=== PATIENT | female | born 1970 | race Caucasian/White ===

== ENCOUNTER 2017-10-04 12:24 | Inpatient (IN) ==
--- NOTE | 2017-10-04 12:52 | ED ---
HPI General Chief Complaint: Psychiatric Symptoms Stated Complaint: Anxiety Time Seen by Provider: 10/04/17 12:39 History of Present Illness HPI Narrative: Patient comes to the emergency department requesting to "get my head right". Patient reports visual and auditory hallucinations. Patient states that she is uncertain what the voices were telling her. Patient denies any suicidal homicidal ideations. Patient reports that she was on the highway all night visualizing a ship. Patient states she has been seeing visions of "Armageddon". Patient denies anything making symptoms better or worse. Denies any drug use or . Denies any chest pain, shortness breath, abdominal pain, or fevers. Denies any modifying factors. Related Data Allergies Allergy/AdvReac Type Severity Reaction Status Date / Time No Known Allergies Allergy Unverified 10/04/17 12:30 Review of Systems Except as stated in HPI: all other systems reviewed are negative PMFSH Social History Social History Second Hand Smoke Exposure: Yes Smoking Status: Current every day smoker Tobacco Type: Cigarettes How Often Do You Have a Drink Containing Alcohol: 4 or more times a week Recent Travel in [facility] within the Last 8 Weeks: No Recent Out of Country Travel within the Last 8 Weeks: No Exam Narrative Exam Narrative: GENERAL: Well-developed, well nourished, in no acute distress, and non-ill appearing. SKIN: Focused skin assessment warm and dry. HEAD: Atraumatic. Normocephalic. EYES: Pupils equal and round. EOMI. No scleral icterus. No injection or drainage. ENT: No nasal bleeding or discharge. Mucous membranes pink and moist. NECK: Trachea midline. No JVD. Supple. No nuclear rigidity. CARDIOVASCULAR: Regular rate and rhythm. No murmur appreciated. RESPIRATORY: No accessory muscle use. No respiratory distress. Clear to auscultation. Breath sounds equal bilaterally. GASTROINTESTINAL: Abdomen soft, non-tender, nondistended, and no guarding. Hepatic and splenic margins not palpable. No pulsatile mass. MUSCULOSKELETAL: No obvious deformities. No clubbing. No cyanosis. No edema. Full range of motion. NEUROLOGICAL: Awake and alert. No obvious cranial nerve deficits. Motor grossly within normal limits. Normal speech. PSYCHIATRIC: Insight and judgment abnormal. Course Initial Documented Vital Signs Temperature 96.5 F L 10/04/17 12:30 Pulse Rate 96 H 10/04/17 12:30 Blood Pressure 165/97 H 10/04/17 12:30 Pulse Oximetry 99 10/04/17 12:30 Last Documented Vital Signs Temperature 96.5 F L 10/04/17 12:30 Pulse Rate 96 H 10/04/17 12:30 Blood Pressure 165/97 H 10/04/17 12:30 Pulse Oximetry 99 10/04/17 12:30 Medical Decision Making MDM Narrative Medical decision making narrative: Patient was seen and examined. Labs and CT were obtained and reviewed. Patient medically cleared for further treatment and evaluation by psych. Final disposition per psych. Differential Diagnosis Differential Diagnosis: Suicidal, homicidal, schizophrenia, acute psychosis, substance abuse, UTI, intracranial hemorrhage, intracranial mass Lab Data Lab results reviewed: Yes I reviewed the patient's lab results. Result diagrams: 10/04/17 13:05 10/04/17 13:05 Lab Results 10/04/17 10/04/17 10/04/17 Range/Units 13:00 13:00 13:05 WBC 14.2 H (4.0-11.0) th/mm3 RBC 4.31 (4.00-5.30) mil/mm3 Hgb 10.3 L (11.6-15.3) gm/dL Hct 31.9 L (35.0-46.0) % MCV 74.0 L (80.0-100.0) fL MCH 23.8 L (27.0-34.0) pg MCHC 32.1 (32.0-36.0) % RDW 18.3 H (11.6-17.2) % Plt Count 396 (150-450) th/mm3 MPV 8.2 (7.0-11.0) fL Neut % (Auto) 76.6 H (16.0-70.0) % Lymph % (Auto) 15.5 (9.0-44.0) % [place] % (Auto) 6.9 (0.0-8.0) % Eos % (Auto) 0.6 (0.0-4.0) % Baso % (Auto) 0.4 (0.0-2.0) % Neut # (Auto) 10.9 H (1.8-7.7) th/mm3 Lymph # (Auto) 2.2 (1.0-4.8) th/mm3 [place] # (Auto) 1.0 H (0.0-0.9) th/mm3 Eos # (Auto) 0.1 (0.0-0.4) th/mm3 Baso # (Auto) 0.1 (0.0-0.2) th/mm3 WBC Differential . Differential Comment Auto diff final Sodium (136-145) meq/L Potassium (3.5-5.1) meq/L Chloride (98-107) meq/L Carbon Dioxide (21.0-32.0) meq/L Anion Gap (5-15) meq/L BUN (7-18) mg/dL Creatinine (0.50-1.00) mg/dL Estimated GFR (>89) mL/min Random Glucose (74-106) mg/dL Calcium (8.5-10.1) mg/dL Total Bilirubin (0.2-1.0) mg/dL AST (15-37) U/L ALT (10-53) U/L Alkaline Phosphatase (45-117) U/L Total Protein (6.4-8.2) g/dL Albumin (3.4-5.0) g/dL TSH (0.358-3.740) uIU/mL Urine Color Yellow (Yellw/Straw) Urine Clarity Hazy H (Clear) Urine pH 5.0 (5.0-8.5) Ur Specific [place] 1.021 (1.002-1.035) Urine Protein Negative (Neg-Trace) mg/dL Urine Glucose (UA) Negative (Negative) mg/dL Urine Ketones Negative (Negative) mg/dL Urine Occult Blood Moderate H (Negative) Urine Nitrate Negative (Negative) Urine Bilirubin Negative (Negative) Urine Urobilinogen 2.0 H (Less than 2) mg/dL Ur Leukocyte Esterase Negative (Negative) Urine RBC 4 H (0-3) /hpf Urine WBC 1 (0-5) /hpf Ur Squamous Epith Cells 2 (0-5) /hpf Urine Bacteria Occasional H (None) /hpf Urine Mucus Few H (Occasional) /lpf Micro UA Comment Culture not ind Salicylates (2.8-20.0) mg/dL Urine Opiates Screen Neg (Neg) Acetaminophen (10.0-30.0) mcg/mL Ur Barbiturates Screen Neg (Neg) Ur Amphetamines Screen Neg (Neg) U Benzodiazepines Scrn Neg (Neg) Urine Cocaine Screen Neg (Neg) U Cannabinoids Screen Neg (Neg) Serum Alcohol (0-5) mg/dL 10/04/17 10/04/17 Range/Units 13:05 13:05 WBC (4.0-11.0) th/mm3 RBC (4.00-5.30) mil/mm3 Hgb (11.6-15.3) gm/dL Hct (35.0-46.0) % MCV (80.0-100.0) fL MCH (27.0-34.0) pg MCHC (32.0-36.0) % RDW (11.6-17.2) % Plt Count (150-450) th/mm3 MPV (7.0-11.0) fL Neut % (Auto) (16.0-70.0) % Lymph % (Auto) (9.0-44.0) % [place] % (Auto) (0.0-8.0) % Eos % (Auto) (0.0-4.0) % Baso % (Auto) (0.0-2.0) % Neut # (Auto) (1.8-7.7) th/mm3 Lymph # (Auto) (1.0-4.8) th/mm3 [place] # (Auto) (0.0-0.9) th/mm3 Eos # (Auto) (0.0-0.4) th/mm3 Baso # (Auto) (0.0-0.2) th/mm3 WBC Differential Differential Comment Sodium 140 (136-145) meq/L Potassium 3.4 L (3.5-5.1) meq/L Chloride 105 (98-107) meq/L Carbon Dioxide 27.1 (21.0-32.0) meq/L Anion Gap 8 (5-15) meq/L BUN 9 (7-18) mg/dL Creatinine 0.78 (0.50-1.00) mg/dL Estimated GFR 80 L (>89) mL/min Random Glucose 95 (74-106) mg/dL Calcium 8.2 L (8.5-10.1) mg/dL Total Bilirubin 0.3 (0.2-1.0) mg/dL AST 12 L (15-37) U/L ALT 17 (10-53) U/L Alkaline Phosphatase 100 (45-117) U/L Total Protein 6.9 (6.4-8.2) g/dL Albumin 3.5 (3.4-5.0) g/dL TSH 2.520 (0.358-3.740) uIU/mL Urine Color (Yellw/Straw) Urine Clarity (Clear) Urine pH (5.0-8.5) Ur Specific [place] (1.002-1.035) Urine Protein (Neg-Trace) mg/dL Urine Glucose (UA) (Negative) mg/dL Urine Ketones (Negative) mg/dL Urine Occult Blood (Negative) Urine Nitrate (Negative) Urine Bilirubin (Negative) Urine Urobilinogen (Less than 2) mg/dL Ur Leukocyte Esterase (Negative) Urine RBC (0-3) /hpf Urine WBC (0-5) /hpf Ur Squamous Epith Cells (0-5) /hpf Urine Bacteria (None) /hpf Urine Mucus (Occasional) /lpf Micro UA Comment Salicylates Less than 1.7 L (2.8-20.0) mg/dL Urine Opiates Screen (Neg) Acetaminophen Less than 2.0 L (10.0-30.0) mcg/mL Ur Barbiturates Screen (Neg) Ur Amphetamines Screen (Neg) U Benzodiazepines Scrn (Neg) Urine Cocaine Screen (Neg) U Cannabinoids Screen (Neg) Serum Alcohol Less than 3 (0-5) mg/dL Imaging Data Radiologist's impression: ITS Impressions Head CT 10/04/17 13:51 CONCLUSION: 1. No acute intracranial abnormalities. Discharge Plan Discharge Disposition Patient Disposition: 30 Still Patient Discharge Details Discharge Problem: Medical clearance for psychiatric admission Physicians Team ED Provider: Amrit Hoff ED Midlevel Provider: Cong Shaffer Primary Care Provider: Primary Care Milagros Hernández Status ED Status: Medically Cleared
[2017-10-04 13:19] LABS: Baso # (Auto) 0.1 th/mm3 (0.0-0.2); Baso % (Auto) 0.4 % (0.0-2.0); Eos # (Auto) 0.1 th/mm3 (0.0-0.4); Eos % (Auto) 0.6 % (0.0-4.0); Hematocrit 31.9 % (35.0-46.0); Hemoglobin 10.3 gm/dL (11.6-15.3); Lymph # (Auto) 2.2 th/mm3 (1.0-4.8); Lymph % (Auto) 15.5 % (9.0-44.0); Mean Corpuscular HGB Conc 32.1 % (32.0-36.0); Mean Corpuscular Hemoglobin 23.8 pg (27.0-34.0); Mean Platelet Volume 8.2 fL (7.0-11.0); Mono % (Auto) 6.9 % (0.0-8.0); Neut # (Auto) 10.9 th/mm3 (1.8-7.7); Neut % (Auto) 76.6 % (16.0-70.0); Platelet Count 396 th/mm3 (150-450); Red Blood Count 4.31 mil/mm3 (4.00-5.30); Red Cell Distribution Width 18.3 % (11.6-17.2); White Blood Count 14.2 th/mm3 (4.0-11.0)
[2017-10-04 13:42] LABS: Alanine Aminotransferase 17 U/L (10-53); Albumin 3.5 g/dL (3.4-5.0); Anion Gap 8 meq/L (5-15); Aspartate Aminotransferase 12 U/L (15-37); Blood Urea Nitrogen 9 mg/dL (7-18); Calcium 8.2 mg/dL (8.5-10.1); Carbon Dioxide 27.1 meq/L (21.0-32.0); Chloride 105 meq/L (98-107); Glomerular Filtration Rate 80 mL/min (>89); Glucose,Random 95 mg/dL (74-106); Potassium 3.4 meq/L (3.5-5.1); Sodium 140 meq/L (136-145)
[2017-10-04 13:51] LABS: Alkaline Phosphatase 100 U/L (45-117); Total Protein 6.9 g/dL (6.4-8.2)
[2017-10-04 14:34] LABS: Bacteria,Urine Occasional /hpf; Bilirubin,Urine Negative (Negative); Clarity,Urine Hazy (Clear); Color,Urine Yellow (Yellw/Straw); Glucose,Urine (UA) Negative (Negative); Leukocyte Esterase,Urine Negative (Negative); Mucus,Urine Few /lpf (Occasional); Nitrite,Urine Negative (Negative); Specific Gravity,Urine 1.021 (1.002-1.035); Squamous Epithelial Cell,Urine 2 /hpf (0-5)
[2017-10-04 14:45] LABS: Amphetamine Screen,Urine Neg (Neg); Barbiturate Screen,Urine Neg (Neg); Cannabinoid Screen,Urine Neg (Neg); Cocaine Screen,Urine Neg (Neg)
[2017-10-04 14:48] LABS: Opiate Screen,Urine Neg (Neg)
--- NOTE | 2017-10-04 17:01 | CT ---
EXAM DATE: 10/04/2017 4:30 PM EDT AGE/SEX: 47 years / Female INDICATIONS: Altered mental status, hallucinations CLINICAL DATA: This is the patient's initial encounter. Patient reports that signs and symptoms have been present for 1 day and indicates a pain score of 0/10. MEDICAL/SURGICAL HISTORY: None. None. RADIATION DOSE: 47.25 CTDI (mGy) COMPARISON: No prior exams available for comparison. TECHNIQUE: CT of the head without contrast. Using automated exposure control and adjustment of the mA and/or kV according to patient size, radiation dose was kept as low as reasonably achievable to ob tain optimal diagnostic quality images. DICOM format image data is available electronically for revi ew and comparison. FINDINGS: Cerebrum: The ventricles are normal for age. No evidence of midline shift, mass lesion, hemorrhage or acute infarction. No extraaxial fluid collections are seen. Posterior Fossa: The cerebellum and brainstem are intact. The 4th ventricle is midline. The cerebe llopontine angle is unremarkable. Extracranial: The visualized portion of the orbits is intact. Skull: The calvaria is intact. No evidence of skull fracture. CONCLUSION: 1. No acute intracranial abnormalities. Electronically signed by: Samson Alvarenga MD 10/04/2017 5:00 PM EDT
--- NOTE | 2017-10-05 15:00 | ED ---
HPI - Psych - General Chief Complaint: Psychiatric Symptoms Stated Complaint: Anxiety Time Seen by Provider: 10/04/17 12:39 - History of Present Illness HPI Narrative: Patient is a 47-year-old single female with 4 children ( 3 boys and 1 girl), who comes to the emergency department stating that she needs to "get my head right." She states that she was originally living in [place] with her mother but left there because her mother has problems with addiction. She then moved to [facility] and was under the care of for her bipolar. She was taking Risperdal and Zoloft but does not recall the doses. She states that she has not been taking her medications because they "messed with my organs." She moved to [place] to start over. 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 She states that she has been on disability in the past. She had a significant other for 6 years but he left her. Her children are currently grown. She discloses that she had a 40 hour period with no sleep. This was followed by a 2 hour nap and then subsequent 35 hours without sleep. She states that she has had this happen in the past when she gets very manic and cannot sleep for days on end. She states that she occasionally will use marijuana and alcohol to get rid of her racing thoughts. Her last marijuana use was in June 2017 and she recently drank 8 beers. She has a high school diploma and did attend [employer]. She is familiar with [place] as she lived here 28 years ago. Patient states that she is allergic to Depakote that it gives her a serious headache when she takes it and prior to the next dose the headache increases. Patient did smoke but she quit in June. Urine drug screen and alcohol are both negative. Chart reviewed and discussed with nurse. Patient is in room J109 of the emergency department. She is alert to self only. She is confused about the date time and place. She is disheveled and her long hair is mangled. She states that she is having visions of "Armageddon." She is preoccupied with past president Obama and thinks that he is trying to kill her. Her thoughts are tangential. She is not logical. She denies any auditory hallucinations. She states that she has visions that people are surrounding her and trying to hurt her. She discusses that she was part of 911 and she led them to [place]. Her motor and gait is normal. Recent and remote memory is impaired. Judgment and insight is poor. She denies any suicidal or homicidal ideation. Based on patient's presentation and moderate risk for decompensation will admit patient for further assessment and treatment. Dx: Bipolar Disorder (Shauna Lynn) - Related Data Home Medications Medication Instructions Recorded Confirmed No Known Home Medications 10/04/17 10/04/17 Allergies Allergy/AdvReac Type Severity Reaction Status Date / Time No Known Allergies Allergy Unverified 10/04/17 12:30 Review of Systems All other systems reviewed negative except as stated in HPI PMFSH - History History Provided By: Patient - Tobacco History Second Hand Smoke Exposure: Yes Tobacco Use In Past 30 Days: Yes Smoking Status: Current every day smoker Tobacco Type: Cigarettes - Alcohol History How Often Do You Have a Drink Containing Alcohol: 4 or more times a week - Travel History Recent Travel in the [facility] Within the Last 8 Weeks: No Recent Travel Out of the Country Within the Last 8 Weeks: No - Immunization History Tetanus Immunization: Unsure Psychiatric History - Psychiatric History Patient has a long history of bipolar and I believe she might also be PTSD although I cannot confirm this. She has been under the treatment of in [facility] for her bipolar. She has been prescribed Risperdal and Zoloft and has been medication noncompliant. (Shauna Lynn) Physical Exam - General Limitations: no limitations General appearance: alert, other (to self, does not know the date, place or who is the president ) - Head Head exam: atraumatic - Eye Eye exam: Present: normal appearance - ENT ENT exam: Present: normal exam - Neck Neck exam: Present: normal inspection - Chest Chest inspection: Present: normal inspection - Respiratory Respiratory exam: Present: normal lung sounds bilaterally Mental Status Examination Appearance: Disheveled Consciousness: Other (very confused) Orientation: Person Motor Activity: Normal gait Speech: Unremarkable Language: Perseveration Fund of Knowledge: Inadequate Attention and Concentration: Easily distracted Memory: Impaired Mood: Sad Affect: Flat Thought Process & Associations: Loose associations, Disorganized, Tangential Thought Content: Racing thoughts Hallucination Type: Visual (seeing "armegeddon" ; thinks past Pres Obama is trying to kill her.) Delusion Type: Paranoid Suicidal Ideation: No Suicidal Plan: No Suicidal Intention: No Homicidal Ideation: No Homicidal Plan: No Homicidal Intention: No Insight: Poor Judgment: Poor Initial Documented Vital Signs Temperature 96.5 F L 10/04/17 12:30 Pulse Rate 96 H 10/04/17 12:30 Blood Pressure 165/97 H 10/04/17 12:30 Pulse Oximetry 99 10/04/17 12:30 Last Documented Vital Signs Temperature 98.2 F 10/05/17 10:40 Pulse Rate 76 10/05/17 10:40 Respiratory Rate 16 10/05/17 10:40 Blood Pressure 113/59 L 10/05/17 10:40 Pulse Oximetry 99 10/05/17 10:40 MDM - Psych - Diagnosis (1) Bipolar 1 disorder with moderate alejandra Status: Acute - Lab Data Result diagrams: 10/04/17 13:05 10/04/17 13:05 - [facility] Narrative Medical decision making narrative: Patient is a 47-year-old female with a long history of bipolar disorder. She presents to the emergency department with racing thoughts and had not slept in 40 hours. She states that this happens to her often and when she loses sleep she becomes extremely manic. She is currently illogical, tangential, and making nonsensical statements. She has not been compliant with her medications. Based on her presentation and moderate risk for decompensation will admit patient for further assessment and treatment. (Shauna Lynn) - Lab Data Lab Results 10/04/17 10/04/17 10/04/17 Range/Units 13:00 13:00 13:05 WBC 14.2 H (4.0-11.0) th/mm3 RBC 4.31 (4.00-5.30) mil/mm3 Hgb 10.3 L (11.6-15.3) gm/dL Hct 31.9 L (35.0-46.0) % MCV 74.0 L (80.0-100.0) fL MCH 23.8 L (27.0-34.0) pg MCHC 32.1 (32.0-36.0) % RDW 18.3 H (11.6-17.2) % Plt Count 396 (150-450) th/mm3 MPV 8.2 (7.0-11.0) fL Neut % (Auto) 76.6 H (16.0-70.0) % Lymph % (Auto) 15.5 (9.0-44.0) % [place] % (Auto) 6.9 (0.0-8.0) % Eos % (Auto) 0.6 (0.0-4.0) % Baso % (Auto) 0.4 (0.0-2.0) % Neut # (Auto) 10.9 H (1.8-7.7) th/mm3 Lymph # (Auto) 2.2 (1.0-4.8) th/mm3 [place] # (Auto) 1.0 H (0.0-0.9) th/mm3 Eos # (Auto) 0.1 (0.0-0.4) th/mm3 Baso # (Auto) 0.1 (0.0-0.2) th/mm3 WBC Differential . Differential Comment Auto diff final Sodium (136-145) meq/L Potassium (3.5-5.1) meq/L Chloride (98-107) meq/L Carbon Dioxide (21.0-32.0) meq/L Anion Gap (5-15) meq/L BUN (7-18) mg/dL Creatinine (0.50-1.00) mg/dL Estimated GFR (>89) mL/min Random Glucose (74-106) mg/dL Calcium (8.5-10.1) mg/dL Total Bilirubin (0.2-1.0) mg/dL AST (15-37) U/L ALT (10-53) U/L Alkaline Phosphatase (45-117) U/L Total Protein (6.4-8.2) g/dL Albumin (3.4-5.0) g/dL TSH (0.358-3.740) uIU/mL Urine Color Yellow (Yellw/Straw) Urine Clarity Hazy H (Clear) Urine pH 5.0 (5.0-8.5) Ur Specific [place] 1.021 (1.002-1.035) Urine Protein Negative (Neg-Trace) mg/dL Urine Glucose (UA) Negative (Negative) mg/dL Urine Ketones Negative (Negative) mg/dL Urine Occult Blood Moderate H (Negative) Urine Nitrate Negative (Negative) Urine Bilirubin Negative (Negative) Urine Urobilinogen 2.0 H (Less than 2) mg/dL Ur Leukocyte Esterase Negative (Negative) Urine RBC 4 H (0-3) /hpf Urine WBC 1 (0-5) /hpf Ur Squamous Epith Cells 2 (0-5) /hpf Urine Bacteria Occasional H (None) /hpf Urine Mucus Few H (Occasional) /lpf Micro UA Comment Culture not ind Salicylates (2.8-20.0) mg/dL Urine Opiates Screen Neg (Neg) Acetaminophen (10.0-30.0) mcg/mL Ur Barbiturates Screen Neg (Neg) Ur Amphetamines Screen Neg (Neg) U Benzodiazepines Scrn Neg (Neg) Urine Cocaine Screen Neg (Neg) U Cannabinoids Screen Neg (Neg) Serum Alcohol (0-5) mg/dL 10/04/17 10/04/17 Range/Units 13:05 13:05 WBC (4.0-11.0) th/mm3 RBC (4.00-5.30) mil/mm3 Hgb (11.6-15.3) gm/dL Hct (35.0-46.0) % MCV (80.0-100.0) fL MCH (27.0-34.0) pg MCHC (32.0-36.0) % RDW (11.6-17.2) % Plt Count (150-450) th/mm3 MPV (7.0-11.0) fL Neut % (Auto) (16.0-70.0) % Lymph % (Auto) (9.0-44.0) % [place] % (Auto) (0.0-8.0) % Eos % (Auto) (0.0-4.0) % Baso % (Auto) (0.0-2.0) % Neut # (Auto) (1.8-7.7) th/mm3 Lymph # (Auto) (1.0-4.8) th/mm3 [place] # (Auto) (0.0-0.9) th/mm3 Eos # (Auto) (0.0-0.4) th/mm3 Baso # (Auto) (0.0-0.2) th/mm3 WBC Differential Differential Comment Sodium 140 (136-145) meq/L Potassium 3.4 L (3.5-5.1) meq/L Chloride 105 (98-107) meq/L Carbon Dioxide 27.1 (21.0-32.0) meq/L Anion Gap 8 (5-15) meq/L BUN 9 (7-18) mg/dL Creatinine 0.78 (0.50-1.00) mg/dL Estimated GFR 80 L (>89) mL/min Random Glucose 95 (74-106) mg/dL Calcium 8.2 L (8.5-10.1) mg/dL Total Bilirubin 0.3 (0.2-1.0) mg/dL AST 12 L (15-37) U/L ALT 17 (10-53) U/L Alkaline Phosphatase 100 (45-117) U/L Total Protein 6.9 (6.4-8.2) g/dL Albumin 3.5 (3.4-5.0) g/dL TSH 2.520 (0.358-3.740) uIU/mL Urine Color (Yellw/Straw) Urine Clarity (Clear) Urine pH (5.0-8.5) Ur Specific [place] (1.002-1.035) Urine Protein (Neg-Trace) mg/dL Urine Glucose (UA) (Negative) mg/dL Urine Ketones (Negative) mg/dL Urine Occult Blood (Negative) Urine Nitrate (Negative) Urine Bilirubin (Negative) Urine Urobilinogen (Less than 2) mg/dL Ur Leukocyte Esterase (Negative) Urine RBC (0-3) /hpf Urine WBC (0-5) /hpf Ur Squamous Epith Cells (0-5) /hpf Urine Bacteria (None) /hpf Urine Mucus (Occasional) /lpf Micro UA Comment Salicylates Less than 1.7 L (2.8-20.0) mg/dL Urine Opiates Screen (Neg) Acetaminophen Less than 2.0 L (10.0-30.0) mcg/mL Ur Barbiturates Screen (Neg) Ur Amphetamines Screen (Neg) U Benzodiazepines Scrn (Neg) Urine Cocaine Screen (Neg) U Cannabinoids Screen (Neg) Serum Alcohol Less than 3 (0-5) mg/dL
[2017-10-05] MEDS ORDERED: Bisacodyl 10 MG Supp RECTAL PRN (15:06)
[2017-10-05] MEDS ORDERED: Aluminum/Magnesium/Simethacone Susp 30 ML UDC PO PRN (15:06)
[2017-10-05] MEDS: Senna/Docusate Sodium 8.6/50 MG Tablet PO SCH (21:23)
[2017-10-06] MEDS: Senna/Docusate Sodium 8.6/50 MG Tablet PO SCH ×3 (02:33→12:18)
[2017-10-06 08:13] LABS: Anion Gap 9 meq/L (5-15); Blood Urea Nitrogen 7 mg/dL (7-18); Calcium 8.1 mg/dL (8.5-10.1); Carbon Dioxide 26.9 meq/L (21.0-32.0); Chloride 105 meq/L (98-107); Cholesterol 137 mg/dL (120-200); Glomerular Filtration Rate Greater Than 89 mL/min (>89); Glucose,Random 84 mg/dL (74-106); Potassium 3.6 meq/L (3.5-5.1); Sodium 141 meq/L (136-145)
[2017-10-06 08:15] LABS: Chol/HDL Ratio 2.43 Ratio; HDL Cholesterol 56.3 mg/dL (40.0-60.0); LDL Cholesterol,Calculated 70 mg/dL (0-99); Triglycerides 56 mg/dL (42-150)
--- NOTE | 2017-10-06 12:17 | P.HPPSY ---
Provisional Diagnosis Admission Date: October 05, 2017 15:06 [place] I.: 1. Unspecified psychotic disorder Rule-out mood disorder with psychotic features Rule-out primary psychotic disorder [place] II.: Deferred Competence Certification of Person's Competence To Provide Express and Informed Consent I have personally examined Adelaida Townsend, a person being served at [facility] on, October 06, 2017 1217. Express and informed consent means consent voluntarily given in writing, by a competent person, after sufficient explanation and disclosure of the subject matter involved to enable the person to make a knowing and willful decision without any element of force, fraud, deceit, duress, or other form of constraint or coercion. This person is 18 years of age or older, is not now known to be incompetent to consent to treatment with a guardian advocate, and does not have a health care surrogate or proxy currently making medical treatment decisions. I have found this person to be one of the following: [x] Competent to provide express and informed consent, as defined above, for voluntary admission to this facility and is competent to provide express and informed consent for treatment. He/she has the consistent capacity to make well reasoned, willful, and knowing decisions concerning his or her medical or mental health treatment. The person fully and consistently understands the purpose of the admission for examination/placement and is fully capable of personally exercising all rights assured [place] Incompetent to provide express and informed consent to voluntary admission, and this is incompetent to provide express and informed consent to treatment. The person must be transferred to involuntary status and a petition for a guardian advocate filed with the Circuit Court. [] Refusing to provide express and informed consent to voluntary admission but is competent to provide express and informed consent for treatment. The person must be discharged or transferred to involuntary status. Form shall be completed within 24 hours of a person's arrival at the receiving facility and filed in the clinical record of each person: 1. Admitted on a voluntary basis 2. Permitted to provide express and informed consent to his/her own treatment 3. Allowed to transfer from involuntary to voluntary status 4. Prior to permitting a person to consent to his or her own treatment after having been previously found incompetent to consent to treatment. History of Present Illness Capacity: Has capacity Chief Complaint: Psychosis History of Present Illness: Ms. Townsend is a 47 year-old female with a reported history of PTSD and BPAD with psychotic features who presented to the ED voluntarily to "get my head right." She reported psychotic symptoms including AVH to the ED provider and was evaluated by the immigration coordinator in the ED. reviewing the electronic medical record, I see no previous psychiatric contact within our system. Patient seen and examined with nurseDavid. Chart reviewed. Case discussed with nursing staff. On my examination today, the patient presents as paranoid and internally preoccupied. She tells me "if the radial arm saw operator don't get me, one of the murderers on the street will." She further says "if I turn to prostitution, I' m gonna find a gun." She then rambles in a difficult to follow fashion about "stand your ground." She denies suicidal ideation but endorses homicidal ideation and notes "I'm not gonna tell you who." She refuses to even say whether she is having any thoughts about hurting other people on the inpatient unit. I have ordered the patient to be transferred to high acuity unit, camera room and have notified charge account clerk about this order. Patient endorses ideas of reference from the TV and telephone, she is receiving messages to do with "science and technology versus reality." She feels that we are "already in" Armageddon. Affect is broadly dysphoric, and the patient becomes explosively angry towards the end of our interaction, hurling invective at this provider and nurse without any identifiable provocation. No hypomanic or manic symptoms. Remainder of the psychiatric ROS is negative. No acute physical complaints. Past psychiatric history: The patient reports previous diagnoses as noted above. She previously followed with Dr. Jeronimo in [place], last visit over a year ago. She says that she was prescribed Abilify and Zoloft at "middling doses" but has not taken these medications in some time. She feels that Seroquel was more helpful in the past. She endorses 15 previous psychiatric admissions and 4 previous suicide attempts, all by overdose. Family history: The patient alludes to some sort of family history of mental illness, unclear what diagnoses. Chemical dependency history: Patient denies any abuse of drugs or alcohol. Social history: The patient has been living in her car. She has no income. She is high school educated. She is single and tells me that she has no children, although she told the nurse practitioner that she has 4 children. She is evasive when I ask about or legal history. The social history is limited because of the patient's degree of psychiatric symptomatology at present. - Inpatient Certification I certify that the inpatient services were ordered in accordance with Medicare regulations governing the order. This includes certification that hospital inpatient services are reasonable and necessary and in the case of services not specified as inpatient-only under 42 CFR 419.22(n), that they are appropriately provided as inpatient services in accordance to with the 2-midnight benchmark under 43 CFR 412.3(e) I certify that inpatient psychiatric hospital services are medically necessary. Evaluation and treatment and/or diagnostic testing are expected to improve the patient's condition. The patient needs on a daily basis, active treatment furnished directly by or requiring the supervision of inpatient psychiatric facility personnel. Estimated Total Length of Stay (Days): 7 Plans for Post Hospital Care: Not yet determined Review of Systems All other systems reviewed negative except as stated in HPI (Limitation: Psychosis) PMFSH - History History Provided By: Patient - Tobacco History Second Hand Smoke Exposure: No Tobacco Use In Past 30 Days: No Smoking Status: Former smoker Tobacco Type: Cigarettes - Alcohol History How Often Do You Have a Drink Containing Alcohol: Monthly or less - Substance Use History Substance History: Past History - Substance Use Type Alcohol Status: Active Route Used: By Mouth Frequency: 4 beers last week, 2 or 3 slips in last 2 years. Reason for Use: Calm Down - Travel History Recent Travel in the [place] Within the Last 8 Weeks: No Recent Travel Out of the Country Within the Last 8 Weeks: No - Immunization History Tetanus Immunization: Unsure Quality Measures - Psychiatric History Psychological trauma history: Patient alludes to a history of PTSD, but I cannot elicit from her and her paranoid state what her trauma history is. - Patient Strengths Patient's strengths (minimum of 2): In a monitored setting. Verbally fluent. Medications and Allergies Active Medications: Active Medications Al Hydrox/Mg Hydrox/Simethicone (Mag-Al Plus Susp Liq) 30 ml PO Q6H PRN PRN Reason: DYSPEPSIA Al Hydroxide/Mg Hydroxide (Milk Of Magnesia Liq) 30 ml PO DAILY PRN PRN Reason: CONSTIPATION Al Hydroxide/Mg Hydroxide (Milk Of Magnesia Liq) 30 ml PO Q12H PRN PRN Reason: Mild Constipation Al Hydroxide/Mg Hydroxide (Milk Of Magnesia Liq) 30 ml PO Q12H PRN PRN Reason: Mild Constipation Bisacodyl (Dulcolax Supp) 10 mg RECTAL DAILY PRN PRN Reason: SEVERE CONSITIPATION Lactulose (Lactulose Liq) 30 ml PO DAILY PRN PRN Reason: SEVERE CONSITIPATION Senna/Docusate Sodium (Merly-Colace) 1 tab PO BID [facility] Last Admin: 10/05/17 21:23 Dose: 1 tab Senna/Docusate Sodium (Merly-Colace) 1 tab PO BID [facility] Last Admin: 10/06/17 02:33 Dose: Not Given Sennosides (Senokot) 17.2 mg PO Q12H PRN PRN Reason: Moderate Constipation Sennosides (Senokot) 17.2 mg PO Q12H PRN PRN Reason: Moderate Constipation Allergies Allergy/AdvReac Type Severity Reaction Status Date / Time No Known Allergies Allergy Unverified 10/04/17 12:30 Home Medications Medication Instructions Recorded Confirmed Type No Known Home Medications 10/04/17 10/04/17 History Results - Labs CBC & Chem 7: 10/04/17 13:05 10/06/17 07:21 Labs: Laboratory Results - last 24 hr 10/06/17 07:21 Sodium 141 Potassium 3.6 Chloride 105 Carbon Dioxide 26.9 Anion Gap 9 BUN 7 Creatinine 0.70 Estimated GFR Greater than 89 Random Glucose 84 Calcium 8.1 L Triglycerides 56 Cholesterol 137 LDL Cholesterol, Calc 70 HDL Cholesterol 56.3 Cholesterol/HDL Ratio 2.43 Labs reviewed. Leukocytosis noted without signs or symptoms of infection. Rechecking CBC. Microcytic anemia noted. If anemia persists on recheck, we will plan to check iron studies. ED point of care test negative. Head CT negative. Exam Vital signs: Vital Signs 10/05/17 18:00 10/06/17 05:25 Temperature 98.1 F 98.1 F Pulse Rate 72 68 Respiratory Rate 18 16 Blood Pressure 116/59 L 111/64 Pulse Oximetry 96 98 Intake & Output 10/05/17 10/06/17 10/06/17 18:59 06:59 18:59 Weight 86.6 kg Other: Weight On Admission 86.6 kg Narrative: Physical examination completed by ED provider. On my examination today, the patient appears to be in no acute physical distress. No motor abnormalities noted. Labs and vital signs reviewed: Mental Status Examination Appearance: Disheveled Consciousness: Alert, Vigilant Orientation: Person (At least) Motor Activity: Other (No motor abnormalities noted) Speech: Unremarkable Language: Adequate Fund of Knowledge: Adequate Attention and Concentration: Easily distracted Memory: Unremarkable (Psychosis likely interferes to some extent) Mood: Angry, Other (Dysphoric) Affect: Irritable, Labile Thought Process & Associations: Tangential Thought Content: Delusional Hallucination Type: Other (Internally stimulated) Delusion Type: Paranoid Suicidal Ideation: No Suicidal Plan: No Suicidal Intention: No Homicidal Ideation: Yes Homicidal Plan: No Homicidal Intention: No Insight: Poor Judgment: Poor Assessment and Plan - Assessment (1) Unspecified psychosis Code(s): F29 - Unspecified psychosis not due to a substance or known physiological condition Status: Acute - Plan Plan: 47-year-old female with psychiatric history as detailed above who presents voluntarily for psychiatric evaluation. On my examination today, psychotic symptoms are prominent. Patient's affect is dysphoric, I suspect this is largely reactive to her delusional beliefs, although a mood disorder with psychotic features is possible (perhaps BPAD mixed). My suspicion in the present case is for a primary psychotic illness, such as SAD, bipolar type. Given ongoing psychosis and homicidal ideation, I will plan to admit the patient to the inpatient psychiatric unit for safety, observation and stabilization. Admit inpatient. Transfer to high acuity unit. Voluntary status. Initiate Seroquel 50 mg twice daily with plans to titrate to effect. I did suggest that the patient consider an agent with available long-acting injectable, but she wishes to go with the Seroquel. Check EKG for QTC. Atarax as needed for anxiety. Benadryl as needed for sleep. R/B/A for medications discussed with patient. Follow-up CBC. Vitals every shift. Counselor to see. Collateral information. Disposition planning. Estimated length of stay: 5-7 days. Justification for Continued Inpatient Stay: Impairment in reality construction. Monitoring for impairment in safety. Medication changes. High risk for decompensation in less restrictive environment. Discharge Planning: Pending psychiatric stabilization Request Healthcare Surrogate/Guardian Advocate?: No
[2017-10-06 14:24] LABS: Baso % (Auto) 0.3 % (0.0-2.0); Eos # (Auto) 0.1 th/mm3 (0.0-0.4); Eos % (Auto) 1.5 % (0.0-4.0); Hematocrit 32.7 % (35.0-46.0); Hemoglobin 10.4 gm/dL (11.6-15.3); Lymph # (Auto) 2.2 th/mm3 (1.0-4.8); Lymph % (Auto) 25.2 % (9.0-44.0); Mean Corpuscular HGB Conc 31.8 % (32.0-36.0); Mean Corpuscular Hemoglobin 24.1 pg (27.0-34.0); Mean Corpuscular Volume 75.6 fL (80.0-100.0); Mean Platelet Volume 8.6 fL (7.0-11.0); Mono # (Auto) 0.6 th/mm3 (0.0-0.9); Mono % (Auto) 7.2 % (0.0-8.0); Neut # (Auto) 5.7 th/mm3 (1.8-7.7); Neut % (Auto) 65.8 % (16.0-70.0); Platelet Count 353 th/mm3 (150-450); Red Blood Count 4.32 mil/mm3 (4.00-5.30); Red Cell Distribution Width 18.8 % (11.6-17.2); White Blood Count 8.7 th/mm3 (4.0-11.0)
[2017-10-06 17:19] LABS: Hemoglobin A1c 5.3 % (4.3-6.0)
[2017-10-06] MEDS: QUEtiapine 25 MG Tablet PO SCH (21:15)
[2017-10-06 22:27] LABS: % Iron Saturation 5.9 % (20-50)
[2017-10-07] MEDS: QUEtiapine 25 MG Tablet PO SCH ×2 (08:01→20:55)
--- NOTE | 2017-10-07 11:56 | P.PNPSY ---
Subjective Chief Complaint: Psychosis Remarks: Patient seen and examined with counselor and nurse. Chart reviewed. Patient completed a right of release yesterday afternoon at 15:50. Case discussed with nursing staff who reports patient was angry and cursing overnight. Patient refused EKG three times. Case discussed in treatment team. On my examination today, patient remains floridly psychotic. She complains that the Seroquel is "too strong" because it is decreasing her telepathic communication abilities. She believes that she is "under attack" and says that she knows this because of "the voices I hear and the thoughts I am getting." She reports CAH to self- injure and seems to vacillate between thoughts of self-injury and violence against others, although staff has observed no efforts at either on the unit. No evident side effects from medications. No physical complaints. Patient refuses to rescind ROR. She says that she may become nonadherent with psychotropics if we retain her. Vital Signs Temp Pulse Resp BP Pulse Ox 10/07/17 05:49 98.2 F 63 16 115/65 97 Laboratory Results - last 24 hr 10/06/17 10/06/17 07:21 07:27 Hemoglobin A1c 5.3 Iron 19 L TIBC 322 % Saturation 5.9 L Ferritin 7 L Labs reviewed. Ongoing microcytic anemia. Iron studies consistent with iron deficiency. Review of Systems All other systems reviewed negative except as stated in HPI Mental Status Examination Appearance: Disheveled Consciousness: Alert, Vigilant Orientation: Person, Place (At least) Motor Activity: Other (No abnormal motor movements noted) Speech: Unremarkable Language: Adequate Fund of Knowledge: Adequate Attention and Concentration: Easily distracted Memory: Unremarkable (Psychosis likely interferes to some extent) Mood: Angry, Oppositional Affect: Irritable, Other (Dysphoric) Thought Process & Associations: Tangential Thought Content: Delusional Hallucination Type: Other (Remains internally stimulated) Delusion Type: Paranoid Suicidal Ideation: Yes Suicidal Plan: No Suicidal Intention: No Homicidal Ideation: Yes Homicidal Plan: No Homicidal Intention: No Insight: Poor Judgment: Poor Assessment and Plan - Assessment (1) Unspecified psychosis Code(s): F29 - Unspecified psychosis not due to a substance or known physiological condition Status: Acute - Plan Plan: Titrate Seroquel to 50mg qAM and 75mg qHS to target psychosis. Education provided regarding this medication and typical dosage range. I also encouraged her to allow us to check EKG and have educated her on the purpose of this study , but she declines it. Patient remains quite psychotic with ongoing SI/HI, and I cannot support her discharge today for these reasons. She refuses to rescind ROR and so I will initiate a petition for involuntary psychiatric hospitalization and consult for second opinion. A healthcare surrogate/ guardian advocate may be needed, but I will hold off at this time and continue in my efforts to involve the patient in her care. Iron supplements started. Continue to monitor on the high acuity unit. Continue other medications and care as ordered. Justification for Continued Inpatient Stay: Impairment in reality construction. Concern for impairment in safety. Medication changes. High risk for decompensation in less restrictive environment. Discharge Planning: Pending psychiatric stabilization Request Healthcare Surrogate/Guardian Advocate?: No
[2017-10-08] MEDS: QUEtiapine 25 MG Tablet PO SCH ×2 (09:32→20:38)
--- NOTE | 2017-10-08 13:18 | P.CONPSY ---
Provisional Diagnosis Admission Date: October 05, 2017 15:06 [place] I.: 1. Unspecified psychotic disorder Rule-out mood disorder with psychotic features Rule-out primary psychotic disorder [place] II.: Deferred History of Present Illness Service: Psychiatry Primary Care Provider: No Primary Care Physician History of Present Illness: The patient is a 47 year-old female with a reported history of PTSD and BPAD with psychotic features who presented to the ED voluntarily to "get my head right." She reported psychotic symptoms including AVH to the ED provider and was evaluated by the multifocal button generator in the ED. reviewing the electronic medical record, I see no previous psychiatric contact within our system. Consulted to me for second opinion. The patient is found in the recreational area of the unit. She is irritable, oppositional, reluctant to cooperate with me. He seems to be internally preoccupied and paranoid. She says that she does not want to talk to me because "he also part of that group for people the wants to steal my identity of harm me". She denies suicidal enemas ideation, she denies visual and auditory hallucinations. PMFSH - History History Provided By: Patient - Tobacco History Second Hand Smoke Exposure: No Tobacco Use In Past 30 Days: No Smoking Status: Former smoker Tobacco Type: Cigarettes - Alcohol History How Often Do You Have a Drink Containing Alcohol: Monthly or less - Substance Use History Substance History: Past History - Substance Use Type Alcohol Status: Active Route Used: By Mouth Frequency: 4 beers last week, 2 or 3 slips in last 2 years. Reason for Use: Calm Down - Travel History Recent Travel in the [place] Within the Last 8 Weeks: No Recent Travel Out of the Country Within the Last 8 Weeks: No - Immunization History Tetanus Immunization: Unsure Medications and Allergies Active Medications: Active Medications Al Hydrox/Mg Hydrox/Simethicone (Mag-Al Plus Susp Liq) 30 ml PO Q6H PRN PRN Reason: DYSPEPSIA Al Hydroxide/Mg Hydroxide (Milk Of Magnesia Liq) 30 ml PO Q12H PRN PRN Reason: Mild Constipation Diphenhydramine HCl (Benadryl) 50 mg PO HS PRN PRN Reason: INSOMNIA Last Admin: 10/07/17 20:55 Dose: 50 mg Ferrous Sulfate (Ferosul) 325 mg PO BID@1200,1700 MICHAEL Hydroxyzine HCl (Atarax) 50 mg PO Q6H PRN PRN Reason: ANXIETY Last Admin: 10/06/17 21:15 Dose: 50 mg Lactulose (Lactulose Liq) 30 ml PO DAILY PRN PRN Reason: SEVERE CONSITIPATION Quetiapine Fumarate (Seroquel) 75 mg PO HS MICHAEL Last Admin: 10/07/17 20:55 Dose: 75 mg Quetiapine Fumarate (Seroquel) 50 mg PO DAILY [facility]HAEL Last Admin: 10/08/17 09:32 Dose: 50 mg Allergies Allergy/AdvReac Type Severity Reaction Status Date / Time No Known Allergies Allergy Unverified 10/04/17 12:30 Home Medications Medication Instructions Recorded Confirmed Type No Known Home Medications 10/04/17 10/04/17 History Exam Vital signs: Vital Signs 10/07/17 17:01 Pulse Rate 87 Respiratory Rate 18 Blood Pressure 115/67 Pulse Oximetry 100 Mental Status Examination Appearance: Disheveled Consciousness: Alert, Vigilant Orientation: Person, Place (At least) Motor Activity: Other (No abnormal motor movements noted) Speech: Unremarkable Language: Adequate Fund of Knowledge: Adequate Attention and Concentration: Easily distracted Memory: Unremarkable (Psychosis likely interferes to some extent) Mood: Angry, Oppositional Affect: Irritable, Other (Dysphoric) Thought Process & Associations: Tangential Thought Content: Delusional Hallucination Type: Other (Remains internally stimulated) Delusion Type: Paranoid Suicidal Ideation: Yes Suicidal Plan: No Suicidal Intention: No Homicidal Ideation: Yes Homicidal Plan: No Homicidal Intention: No Insight: Poor Judgment: Poor Assessment and Plan - Assessment (1) Unspecified psychosis Code(s): F29 - Unspecified psychosis not due to a substance or known physiological condition Status: Acute - Plan Plan: I have seen and examined this patient, reviewed documentation, I agree and concur with Dr. Crawley assessment and plan. Consult appreciated. Justification for Continued Inpatient Stay: Continue admitted Request Healthcare Surrogate/Guardian Advocate?: No (1) Unspecified psychosis Qualifiers: Psychosis type: schizophrenia
--- NOTE | 2017-10-08 14:51 | P.PNPSY ---
Subjective Chief Complaint: Psychosis Remarks: Patient seen and examined with nurse. Chart reviewed. Case discussed with nursing staff. On my examination today, speech is somewhat rapid, rambling and difficult to follow. Affect is somewhat labile. Although she denies SI/HI, she accuses someone of turning her into a prostitute and strongly implies that this person would come to a violent end. It is difficult to follow this part of her narrative, and so I cannot say with certainty that this constitutes a threat of violence. She believes that she can read minds and that she is "dealing with a demon." She does not report any side effects from medications but again feels that she did fine with a lower dose. Further education provided regarding the therapeutic dosage range of Seroquel. Complains of some mild neck and back pain without any associated symptoms. No other physical complaints. Vital Signs Pulse Resp BP Pulse Ox 10/07/17 17:01 87 18 115/67 100 It appears patient refused VS this morning. Labs reviewed. No new labs. Review of Systems All other systems reviewed negative except as stated in HPI (Limitation: Psychosis) Mental Status Examination Appearance: Other (Fair grooming) Consciousness: Alert, Vigilant Orientation: Person, Place (At least) Motor Activity: Other (No motoric abnormalities noted) Speech: Rapid (Mild) Language: Other (Rambling) Fund of Knowledge: Adequate Attention and Concentration: Easily distracted Memory: Unremarkable (Psychosis likely interferes to some extent) Mood: Other (Dysphoric) Affect: Irritable, Labile Thought Process & Associations: Tangential Thought Content: Delusional Hallucination Type: Other (Remains internally stimulated) Delusion Type: Paranoid Suicidal Ideation: No Suicidal Plan: No Suicidal Intention: No Homicidal Ideation: No (Unclear whether patient is reliable to contract for safety) Homicidal Plan: No Homicidal Intention: No Insight: Poor Judgment: Poor Assessment and Plan - Assessment (1) Unspecified psychosis Code(s): F29 - Unspecified psychosis not due to a substance or known physiological condition Status: Acute - Plan Plan: Continue Seroquel 50/75mg for psychosis with plans for ongoing titration. I want to avoid over-rapid titration as I suspect this will lead to medication non -adherence as patient is already reluctant to take medications. Continue to monitor on the high acuity unit for now, although my goal is to transition her back to the lower acuity unit once safe to do so. Continue other medications and care as ordered. Justification for Continued Inpatient Stay: Impairment in reality construction. Monitoring for impairment in safety. High risk for decompensation in less restrictive environment. Discharge Planning: Pending psychiatric stabilization Request Healthcare Surrogate/Guardian Advocate?: No (1) Unspecified psychosis Qualifiers: Psychosis type: schizophrenia
[2017-10-09] MEDS: QUEtiapine 25 MG Tablet PO SCH (08:23)
--- NOTE | 2017-10-09 09:49 | P.PNPSY ---
Subjective Chief Complaint: Psychosis Remarks: Patient seen and examined with nurse. Chart reviewed. Case discussed with nursing staff. No behavioral issues overnight. Complaining of some neck stiffness. On my examination today, the patient has full range of movement at the neck. No meningismus. No fever, and the patient is not ill appearing. No hand tremor, cogwheeling, dystonia or dyskinesia noted. When I ask about audiovisual hallucinations, the patient says that it is too early to tell. She denies any SI or HI. Remains a little delusional on previous themes, although this seems to be decreasing. She is less irritable. No medication side effects. No other physical complaints. Vital Signs Temp Pulse Resp BP Pulse Ox 10/09/17 06:00 65 106/27 L 10/08/17 15:54 98.1 F 64 18 119/58 L 98 Intake and Output 10/08/17 10/09/17 10/09/17 22:59 06:59 14:59 Other: Weight 84.8 kg Labs reviewed. No new labs. Review of Systems All other systems reviewed negative except as stated in HPI (Limitation: Psychosis) Mental Status Examination Appearance: Appropriate Consciousness: Alert Orientation: Person, Place (At least) Motor Activity: Other (Motor exam as above) Speech: Unremarkable Language: Adequate Fund of Knowledge: Adequate Attention and Concentration: Adequate Memory: Unremarkable (Psychosis likely interferes to some extent) Mood: Other (Less dysphoric) Affect: Blunt (Less irritable) Thought Process & Associations: Intact Thought Content: Delusional Hallucination Type: Other (Less internally stimulated) Delusion Type: Paranoid (Decreasing) Suicidal Ideation: No Suicidal Plan: No Suicidal Intention: No Homicidal Ideation: No Homicidal Plan: No Homicidal Intention: No Insight: Poor (Perhaps improving somewhat) Judgment: Poor Assessment and Plan - Assessment (1) Unspecified psychosis Code(s): F29 - Unspecified psychosis not due to a substance or known physiological condition Status: Acute - Plan Plan: Titrate Seroquel to 50 mg in the morning and 100 mg at bedtime for psychosis. Add Cogentin as needed for possible EPS. If the patient has a good day today, plan to transfer back to the lower acuity unit. There has been no evidence of behavioral disturbance on the higher acuity unit. Continue to monitor on the inpatient unit. Continue other medications and care as ordered. Justification for Continued Inpatient Stay: Medication changes. Impairment in reality construction. High risk for decompensation in less restrictive environment. Discharge Planning: Pending psychiatric stabilization. Patient does seem to be improving slowly. Request Healthcare Surrogate/Guardian Advocate?: No
[2017-10-09] MEDS ORDERED: Acetaminophen 325 MG Tablet PO PRN (09:50)
[2017-10-09] MEDS ORDERED: Benztropine Inj 2 MG/2 ML Ampul IM PRN (09:50)
[2017-10-09] MEDS: Ferrous Sulfate 325 MG Tablet PO SCH ×3 (12:00→16:52)
[2017-10-09] MEDS ORDERED: QUEtiapine 100 MG Tablet PO SCH (21:00)
[2017-10-10] MEDS: QUEtiapine 25 MG Tablet PO SCH (09:00)
--- NOTE | 2017-10-10 10:50 | P.PNPSY ---
Subjective Chief Complaint: Psychosis Remarks: Patient seen and examined with counselor and nurse. Chart reviewed. Case discussed with nursing staff. Patient noted to be medication compliant. She was reportedly requesting pen and paper "to write down the things the voices were saying." Case discussed in treatment team. On my exam, irritability is again lessened. Patient says she is feeling less angry. Patient slept well overnight. She denies VH but is noncommittal regarding AH. She remains a little internally preoccupied. Remains somewhat paranoid. No side effects from medications. Denies any neck stiffness today. She has not required any Cogentin p.r.n.. No other physical complaints. Vital Signs Temp Pulse Resp BP Pulse Ox 10/10/17 06:27 98.0 F 66 18 111/75 100 Labs reviewed. No new labs. Review of Systems All other systems reviewed negative except as stated in HPI Mental Status Examination Appearance: Appropriate Consciousness: Alert Orientation: Person, Place (At least) Motor Activity: Other (No hand tremor, no dystonia, no dyskinesia noted.) Speech: Unremarkable Language: Adequate Fund of Knowledge: Adequate Attention and Concentration: Adequate Memory: Unremarkable (Psychosis likely interferes to some extent) Mood: Other (Calm) Affect: Blunt Thought Process & Associations: Intact Thought Content: Delusional Hallucination Type: Other (Mildly internally preoccupied) Delusion Type: Paranoid (Again decreasing) Suicidal Ideation: No Suicidal Plan: No Suicidal Intention: No Homicidal Ideation: No Homicidal Plan: No Homicidal Intention: No Insight: Fair Judgment: Impulsive Assessment and Plan - Assessment (1) Unspecified psychosis Code(s): F29 - Unspecified psychosis not due to a substance or known physiological condition Status: Acute - Plan Plan: Titrate Seroquel over the weekend to target residual psychotic symptoms. Interval target dose is 100mg qAM and 150mg qHS. Continue to monitor on inpatient unit. Continue other care as ordered. Justification for Continued Inpatient Stay: Medication changes. Resolving impairments in reality construction. Discharge Planning: Pending psychiatric stabilization. Possible discharge sometime next week. Counselor to work with patient on discharge planning. Request Healthcare Surrogate/Guardian Advocate?: No
[2017-10-10] MEDS: Ferrous Sulfate 325 MG Tablet PO SCH ×2 (12:54→17:18)
[2017-10-10] MEDS: QUEtiapine 100 MG Tablet PO SCH (20:31)
[2017-10-11] MEDS: QUEtiapine 25 MG Tablet PO SCH (09:15)
[2017-10-11] MEDS: Ferrous Sulfate 325 MG Tablet PO SCH ×2 (13:44→18:30)
--- NOTE | 2017-10-11 14:20 | P.PNPSY ---
Subjective Chief Complaint: Psychosis Remarks: Patient was seen and case discussed with nursing. Nursing notes a large improvement in her reality testing. Her insight is improving that her bizarre delusions were largely not true. However, patient later says "I will always feel that way." There is no bizarre behavior on the unit. She was moved to the 2600 unit and is social and is doing well with others. Is compliant with her medications Mental Status Examination Appearance: Appropriate Consciousness: Alert Orientation: Person, Place (At least), Date/Time Motor Activity: Other (No hand tremor, no dystonia, no dyskinesia noted.) Speech: Unremarkable Language: Adequate Fund of Knowledge: Adequate Attention and Concentration: Adequate Memory: Unremarkable (Psychosis likely interferes to some extent) Mood: Other (Calm) Affect: Blunt Thought Process & Associations: Intact Thought Content: Delusional Hallucination Type: Other (Mildly internally preoccupied) Delusion Type: Paranoid (Again decreasing) Suicidal Ideation: No Suicidal Plan: No Suicidal Intention: No Homicidal Ideation: No Homicidal Plan: No Homicidal Intention: No Insight: Fair Judgment: Impulsive Assessment and Plan - Assessment (1) Unspecified psychosis Code(s): F29 - Unspecified psychosis not due to a substance or known physiological condition Status: Acute - Plan Plan: Continue current treatment plan Justification for Continued Inpatient Stay: Patient would decompensate in a less restrictive setting Request Healthcare Surrogate/Guardian Advocate?: No
[2017-10-11] MEDS: QUEtiapine 100 MG Tablet PO SCH (20:44)
[2017-10-12] MEDS: QUEtiapine 100 MG Tablet PO SCH ×2 (09:02→20:24)
--- NOTE | 2017-10-12 13:20 | P.PNPSY ---
Subjective Chief Complaint: Psychosis Remarks: Patient was seen and case discussed with nursing. Patient is significantly more psychotic today. She has bizarre delusions where there are "mind controlling" substances that enable control of a person's mind. She says that these substances are used to kill babies in a satanic ritual. Affect is quite anxious. Vigilant Mental Status Examination Appearance: Appropriate Consciousness: Alert, Vigilant Orientation: Person, Place (At least), Date/Time Motor Activity: Other (No hand tremor, no dystonia, no dyskinesia noted.) Speech: Pressured Language: Adequate Fund of Knowledge: Adequate Attention and Concentration: Adequate Memory: Unremarkable (Psychosis likely interferes to some extent) Mood: Other (Calm) Affect: Blunt Thought Process & Associations: Tangential Thought Content: Bizarre thinking, Delusional Hallucination Type: Other (Mildly internally preoccupied) Delusion Type: Bizarre Suicidal Ideation: No Suicidal Plan: No Suicidal Intention: No Homicidal Ideation: No Homicidal Plan: No Homicidal Intention: No Insight: Fair Judgment: Impulsive Assessment and Plan - Assessment (1) Unspecified psychosis Code(s): F29 - Unspecified psychosis not due to a substance or known physiological condition Status: Acute - Plan Plan: Continue current treatment plan Justification for Continued Inpatient Stay: Patient would decompensate in a less restrictive setting Request Healthcare Surrogate/Guardian Advocate?: No
[2017-10-12] MEDS: Ferrous Sulfate 325 MG Tablet PO SCH ×2 (13:32→18:55)
[2017-10-13] MEDS: QUEtiapine 100 MG Tablet PO SCH (08:15)
--- NOTE | 2017-10-13 09:37 | P.PNPSY ---
Subjective Chief Complaint: Psychosis Remarks: Patient seen and examined with nurse. Chart reviewed. Case discussed with nursing staff. Per nursing, the patient has been in generally good behavioral control although she has had episodes of mood lability. On my examination today , the patient is able to speak more philosophically about her psychotic symptoms. She says that she is having "the same experience as before" starting the Seroquel and says that she feels like "everybody wants to kill me from the president to the Lord." She also says that she feels like external forces believe she was "made to be raped, robbed and ridiculed." Patient seems less distressed by these beliefs today and is able to entertain the notion that these ideas are not reality based. No SI or HI. Denies side effects from medications. No physical complaints. Requesting a visit from the counselor, and I have passed this message along to counselor, Tyron. Vital Signs Temp Pulse Resp BP Pulse Ox 10/13/17 06:19 97.6 F 74 16 113/74 100 10/13/17 06:13 97.6 F 74 16 113/74 100 Intake and Output 10/12/17 10/13/17 10/13/17 22:59 06:59 14:59 Other: Weight 85.6 kg Labs reviewed. No new labs. Review of Systems All other systems reviewed negative except as stated in HPI Mental Status Examination Appearance: Appropriate Consciousness: Alert, Vigilant Orientation: Person, Place (At least) Motor Activity: Other (No motor abnormalities noted) Speech: Unremarkable Language: Adequate Fund of Knowledge: Adequate Attention and Concentration: Adequate Memory: Unremarkable (Psychosis likely interferes to some extent) Mood: Other (Mildly dysphoric) Affect: Blunt Thought Process & Associations: Intact Thought Content: Delusional Hallucination Type: None Delusion Type: Paranoid (Decreasing) Suicidal Ideation: No Suicidal Plan: No Suicidal Intention: No Homicidal Ideation: No Homicidal Plan: No Homicidal Intention: No Insight: Fair Judgment: Impulsive Assessment and Plan - Assessment (1) Unspecified psychosis Code(s): F29 - Unspecified psychosis not due to a substance or known physiological condition Status: Acute - Plan Plan: Patient agreeable to ongoing titration of Seroquel to target residual psychotic symptoms. Titrate Seroquel to 100 mg in the morning and 200 mg at bedtime with plans for ongoing titration to effect. Continue to monitor on the inpatient unit. Continue other medications and care as ordered. Justification for Continued Inpatient Stay: Medication changes. Impairment in reality construction. Discharge Planning: Pending psychiatric stabilization Request Healthcare Surrogate/Guardian Advocate?: No
[2017-10-13] MEDS: Ferrous Sulfate 325 MG Tablet PO SCH ×2 (12:09→17:12)
--- NOTE | 2017-10-14 11:03 | P.PNPSY ---
Subjective Chief Complaint: Psychosis Remarks: Patient seen and examined with nurse. Chart reviewed. Case discussed with nursing staff. Patient noted to exhibit mild yazidism preoccupation per nursing staff. She also reportedly said that she was going to throw out her Seroquel as soon as she was discharged, reporting to nursing staff that she was "not gonna yazidi Seroquel." Case discussed in treatment team. Counselor has spent time with patient on discharge planning today. Although alternative options were presented to patient, counselor relates that patient prefers to be discharged to car. On my exam today, patient and I discuss her ambivalence regarding the Seroquel. She relates that "as soon as I leave here, the Seroquel will have no effect." With clarification, it becomes clear that patient is remains paranoid about the outside world and is fearful that the Seroquel will not be up to the task of managing her paranoia, although she does feel it is helpful here in the hospital. We discuss alternative medication options, namely those with available BROWNLEE. Patient notes that she did very well with Invega Sustenna but experienced what sounds like hyperprolactinemia with menstrual abnormalities secondary to the hyperprolactinemia. We discussed possibly returning to Abilify. Ultimately, patient decides to remain on the Seroquel. No SI or HI. No side effects from medications. No physical complaints. Vital Signs Temp Pulse Resp BP Pulse Ox 10/14/17 06:06 96.6 F L 67 15 105/63 97 10/14/17 06:05 96.6 F L 67 15 105/63 97 10/13/17 17:21 55 L 116/82 97 Labs reviewed. No new labs. Review of Systems All other systems reviewed negative except as stated in HPI (Limitation: Psychosis) Mental Status Examination Appearance: Appropriate Consciousness: Alert, Vigilant Orientation: Person, Place (At least) Motor Activity: Other (No abnormal motor movements noted) Speech: Unremarkable Language: Adequate Fund of Knowledge: Adequate Attention and Concentration: Adequate Memory: Unremarkable (Psychosis likely interferes to some extent) Mood: Appropriate Affect: Blunt Thought Process & Associations: Intact Thought Content: Delusional Hallucination Type: None Delusion Type: Paranoid (Decreasing) Suicidal Ideation: No Suicidal Plan: No Suicidal Intention: No Homicidal Ideation: No Homicidal Plan: No Homicidal Intention: No Insight: Fair Judgment: Impulsive Assessment and Plan - Assessment (1) Unspecified psychosis Code(s): F29 - Unspecified psychosis not due to a substance or known physiological condition Status: Acute - Plan Plan: Titrate Seroquel to 100/250mg to target residual psychotic symptoms. Patient does seem to be improving with this agent. Continue to monitor on the inpatient unit. Continue other medications and care as ordered. Justification for Continued Inpatient Stay: Medication changes. Risk for decompensation in less restrictive environment. Discharge Planning: Pending psychiatric stabilization. Possible discharge later this week. Request Healthcare Surrogate/Guardian Advocate?: No
[2017-10-14] MEDS: QUEtiapine 100 MG Tablet PO SCH (12:06)
[2017-10-14] MEDS: Ferrous Sulfate 325 MG Tablet PO SCH ×2 (12:15→18:41)
[2017-10-14] MEDS ORDERED: QUEtiapine 100 MG Tablet PO SCH (17:00)
[2017-10-15] MEDS: QUEtiapine 100 MG Tablet PO SCH (08:35)
--- NOTE | 2017-10-15 13:59 | P.PNPSY ---
Subjective Chief Complaint: Psychosis Remarks: Patient seen and examined with nurse. Chart reviewed. Case discussed with nursing staff. No behavioral issues noted overnight. On my exam, patient complains of ongoing paranoia. She cannot shake the feeling that President Jac is trying to kill her. She admits that this is unlikely to be true but still feels it is the case. She does say that it is possible that her little brother is using satanic methods to simulate Trump. She says of these thoughts , "deep down, I know its gotta be figments" of her imagination, but these thoughts continue to linger with her. No SI or HI. No side effects from medications. No physical complaints. Vital Signs Temp Pulse Resp BP Pulse Ox 10/15/17 06:00 98.3 F 70 17 103/62 100 10/14/17 18:17 97.7 F 80 16 110/60 100 Intake and Output 10/14/17 10/15/17 10/15/17 22:59 06:59 14:59 Intake Total 360 / 360 Balance 360 / 360 Intake: Oral 360 / 360 Other: Date of Last Bowel Movement 10/14/17 Labs reviewed. No new labs. Review of Systems All other systems reviewed negative except as stated in HPI (Limitation: Psychosis) Mental Status Examination Appearance: Appropriate Consciousness: Alert, Vigilant Orientation: Person, Place (At least) Motor Activity: Other (No motoric abnormalities noted) Speech: Unremarkable Language: Adequate Fund of Knowledge: Adequate Attention and Concentration: Adequate Memory: Unremarkable (Psychosis likely interferes to some extent) Mood: Appropriate Affect: Blunt Thought Process & Associations: Intact Thought Content: Delusional Hallucination Type: None Delusion Type: Paranoid (Ongoing) Suicidal Ideation: No Suicidal Plan: No Suicidal Intention: No Homicidal Ideation: No Homicidal Plan: No Homicidal Intention: No Insight: Fair Judgment: Impulsive Assessment and Plan - Assessment (1) Unspecified psychosis Code(s): F29 - Unspecified psychosis not due to a substance or known physiological condition Status: Acute - Plan Plan: Titrate Seroquel to 100 mg in the morning and 300 mg at bedtime to target psychosis. Patient does seem to have improving insight with this agent but is still finding it difficult to put paranoid ideation out of her mind. Continue to monitor on the inpatient unit. Continue other medications and care as ordered. Justification for Continued Inpatient Stay: Medication changes. Impairment in reality construction. High risk for decompensation in less restrictive environment. Discharge Planning: Pending psychiatric stabilization Request Healthcare Surrogate/Guardian Advocate?: No
[2017-10-15] MEDS: Ferrous Sulfate 325 MG Tablet PO SCH ×2 (15:34→17:24)
[2017-10-16] MEDS: QUEtiapine 100 MG Tablet PO SCH (08:17)
[2017-10-16] MEDS: Ferrous Sulfate 325 MG Tablet PO SCH ×2 (12:09→17:23)
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
[2017-10-16] MEDS ORDERED: Haloperidol Inj 5 MG/ML Ampul IM STA (15:33)
[2017-10-16] MEDS ORDERED: Haloperidol Inj 5 MG/ML Ampul ONE (15:41)
[2017-10-17] MEDS: QUEtiapine 100 MG Tablet PO SCH (09:56)
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
[2017-10-18] MEDS: QUEtiapine 100 MG Tablet PO SCH (09:21)
[2017-10-18] MEDS: Ferrous Sulfate 325 MG Tablet PO SCH ×2 (11:40→17:32)
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
[2017-10-19] MEDS: QUEtiapine 100 MG Tablet PO SCH (08:23)
--- NOTE | 2017-10-19 10:54 | P.PNPSY ---
Subjective Chief Complaint: Depression. Psychosis, resolving Remarks: Reviewed electronic medical record discussed case with staff. Nurse reports the patient has been calm for the last 24 hours, compliant with medications, and witnessed journaling. However, she reports that she paces and her intermittently and laughs inappropriately at times Follow-up was conducted in patient's room. With nurse present. Patient was found awake and alert on her bed. She reports that she is depressed. States that she slept well. Reports that she has a good appetite. She advises that she has been attending groups. No complaints at this time. Mental Status Examination Appearance: Appropriate Consciousness: Alert Orientation: Person, Place (At least) Motor Activity: Other (No motor abnormalities noted.) Speech: Unremarkable Language: Adequate Fund of Knowledge: Adequate Attention and Concentration: Adequate Memory: Unremarkable Mood: Appropriate Affect: Blunt Thought Process & Associations: Intact Thought Content: Appropriate Hallucination Type: None Delusion Type: None Suicidal Ideation: No Suicidal Plan: No Suicidal Intention: No Homicidal Ideation: No Homicidal Plan: No Homicidal Intention: No Insight: Fair Judgment: Impulsive Assessment and Plan - Plan Plan: Patient will be reevaluated tomorrow by her attending psychiatrist. Continue with current treatment plan. Justification for Continued Inpatient Stay: Moving this patient to a less restrictive environment would likely result in decompensation. Request Healthcare Surrogate/Guardian Advocate?: No
[2017-10-19] MEDS: Ferrous Sulfate 325 MG Tablet PO SCH (12:03)
[2017-10-20] MEDS: QUEtiapine 100 MG Tablet PO SCH (09:05)
--- NOTE | 2017-10-20 12:58 | P.PNPSY ---
Subjective Remarks: Patient seen and examined with nurse. Chart reviewed. Case discussed with nursing staff who reports that patient is able to hold it together for the most part although she is easily agitated, for example becoming visibly upset and muttering to herself when someone changed the channel on the television in the day area. On my examination today, the patient articulates ongoing paranoia. She says that she feels "so hated" by others. She does say that "I have a message and the purpose." Denies SI or HI. No side effects from medications. Agreeable to further titration of Seroquel. No physical complaints. Vital Signs Temp Pulse Resp BP Pulse Ox 10/20/17 06:00 97.7 F 91 H 17 101/70 95 10/19/17 18:11 98.4 F 88 16 134/74 98 Intake and Output 10/19/17 10/20/17 10/20/17 22:59 06:59 14:59 Other: Weight 88.8 kg Labs reviewed. No new labs. Review of Systems All other systems reviewed negative except as stated in HPI Mental Status Examination Appearance: Appropriate Consciousness: Alert Orientation: Person, Place (At least) Motor Activity: Other (No abnormal motor movements noted.) Speech: Unremarkable Language: Adequate Fund of Knowledge: Adequate Attention and Concentration: Adequate Memory: Unremarkable Mood: Appropriate Affect: Blunt Thought Process & Associations: Intact Thought Content: Appropriate Hallucination Type: None Delusion Type: Paranoid Suicidal Ideation: No Suicidal Plan: No Suicidal Intention: No Homicidal Ideation: No Homicidal Plan: No Homicidal Intention: No Mental Status Exam Remarks: Insight and judgment are fair. Assessment and Plan - Assessment (1) Unspecified psychosis Code(s): F29 - Unspecified psychosis not due to a substance or known physiological condition Status: Acute - Plan Plan: Titrate Seroquel to 100 mg in the morning and 400 mg at bedtime. Continue to monitor on the inpatient unit. Continue other medications and care as ordered. Justification for Continued Inpatient Stay: Medication changes. Discharge Planning: Possible discharge tomorrow, Friday Request Healthcare Surrogate/Guardian Advocate?: No
[2017-10-21] MEDS: QUEtiapine 100 MG Tablet PO SCH (08:44)
[2017-10-21] MEDS: Ferrous Sulfate 325 MG Tablet PO SCH (12:03)
--- NOTE | 2017-10-21 12:47 | P.DSPSY ---
Psychiatry Discharge Summary Inpatient Psychiatric care?: Yes Advance Directives: No Mental Health Advance Directive: No Health Care Proxy: No - Admission Admission Date: October 05, 2017 15:06 - Admission Diagnosis (1) Unspecified psychosis Code(s): F29 - Unspecified psychosis not due to a substance or known physiological condition Brief History: Ms. Townsend is a 47 year-old female with a reported history of PTSD and BPAD with psychotic features who presented to the ED voluntarily to "get my head right." She reported psychotic symptoms including AVH to the ED provider and was evaluated by the grinder set up operator internal in the ED. reviewing the electronic medical record, I see no previous psychiatric contact within our system. Patient seen and examined with nurseDavid. Chart reviewed. Case discussed with nursing staff. On my examination today, the patient presents as paranoid and internally preoccupied. She tells me "if the adult basic studies teacher don't get me, one of the murderers on the street will." She further says "if I turn to prostitution, I' m gonna find a gun." She then rambles in a difficult to follow fashion about "stand your ground." She denies suicidal ideation but endorses homicidal ideation and notes "I'm not gonna tell you who." She refuses to even say whether she is having any thoughts about hurting other people on the inpatient unit. I have ordered the patient to be transferred to high acuity unit, camera room and have notified lithopone charger about this order. Patient endorses ideas of reference from the TV and telephone, she is receiving messages to do with "science and technology versus reality." She feels that we are "already in" Armageddon. Affect is broadly dysphoric, and the patient becomes explosively angry towards the end of our interaction, hurling invective at this provider and nurse without any identifiable provocation. No hypomanic or manic symptoms. Remainder of the psychiatric ROS is negative. No acute physical complaints. Past psychiatric history: The patient reports previous diagnoses as noted above. She previously followed with Dr. Jeronimo in [place], last visit over a year ago. She says that she was prescribed Abilify and Zoloft at "middling doses" but has not taken these medications in some time. She feels that Seroquel was more helpful in the past. She endorses 15 previous psychiatric admissions and 4 previous suicide attempts, all by overdose. Family history: The patient alludes to some sort of family history of mental illness, unclear what diagnoses. Chemical dependency history: Patient denies any abuse of drugs or alcohol. Social history: The patient has been living in her car. She has no income. She is high school educated. She is single and tells me that she has no children, although she told the nurse practitioner that she has 4 children. She is evasive when I ask about or legal history. The social history is limited because of the patient's degree of psychiatric symptomatology at present. Tobacco Use In Past 30 Days: No How Often Do You Have a Drink Containing Alcohol: Monthly or less Hospital Course: Patient was admitted to a locked, inpatient psychiatric unit. Appropriate precautions were in place throughout patient's hospital stay. Patient was seen and examined on the unit by psychiatry and also visited by counselor. Psychotropic medications were adjusted. Patient had improvement in presenting psychiatric symptomatology during the course of her hospital stay. There was no evidence of any suicidality or homicidality on the inpatient unit. There was no evidence of self-care deficit. Counselor did endeavor several times to provide the patient with an alternative discharge plan, but it is patient's firm desire to return to her car. On the day of discharge: Patient seen and examined with nurse. Chart reviewed. Case discussed with nursing staff. Per nursing, patient has been more visible on the unit. No behavioral issues noted overnight. Case discussed in treatment team. On my examination today, the patient feels ready to leave the inpatient psychiatric unit today. She is future oriented. She denies any suicidal or homicidal ideation, intent or plan and contracts for safety. I can elicit no depressive or hypomanic/manic symptoms. She has no audiovisual hallucinations. No [place] delusional material elicited. She denies side effects from medications besides some mild sleepiness , which is tolerable. No physical complaints. Suicide and violence risk assessment on day of discharge both suggest lower imminent risk from mental illness, and patient's level of function is adequate for outpatient care. Patient has maximized benefit from this inpatient psychiatric hospital stay. She will be discharged today with psychiatric follow-up as arranged by counselor. Patient is also to follow up with primary care. I have counseled the patient regarding warning signs for need to return to the psychiatric emergency room as part of a general safety plan. N.B. I have adjusted the patient's discharge diagnosis to paranoid schizophrenia to reflect my strong suspicion that she suffers from this chronic psychotic illness. - Discharge Discharge Date: 10/21/17 - Discharge Diagnosis (1) Schizophrenia, paranoid type Diagnosis: Principal (Stabilized) Code(s): F20.0 - Paranoid schizophrenia Status: Acute Discharge Disposition: Self - Discharge Instructions Discharge Diet: Regular Diet Activities You Can Perform: Weight Bearing As Tolerat - Discharge Time <= 30 minutes Mental Status Examination Appearance: Appropriate Consciousness: Alert Orientation: x4 Motor Activity: Normal gait, Other (No hand tremor, no dystonia, no dyskinesia, no other motor abnormalities noted.) Speech: Unremarkable Language: Adequate Fund of Knowledge: Adequate Attention and Concentration: Adequate Memory: Unremarkable Mood: Appropriate Affect: Appropriate Thought Process & Associations: Intact, Logical, Linear Thought Content: Appropriate Hallucination Type: None Delusion Type: None Suicidal Ideation: No Suicidal Plan: No Suicidal Intention: No Homicidal Ideation: No Homicidal Plan: No Homicidal Intention: No Insight: Adequate Judgment: Adequate Discharge/Advance Care Plan - Results Vital Signs: Last Vital Signs Temp 97.5 F L 10/21/17 05:56 Pulse 68 10/21/17 05:56 Resp 18 10/21/17 05:56 BP 104/55 L 10/21/17 05:56 Pulse Ox 99 10/21/17 05:56 Lab Results: Laboratory Results Hemoglobin A1c 5.3 % (4.3-6.0) 10/06/17 07:27 Triglycerides 56 mg/dL (42-150) 10/06/17 07:21 Cholesterol 137 mg/dL (120-200) 10/06/17 07:21 LDL Cholesterol, Calc 70 mg/dL (0-99) 10/06/17 07:21 HDL Cholesterol 56.3 mg/dL (40.0-60.0) 10/06/17 07:21 TSH 2.520 uIU/mL (0.358-3.740) 10/04/17 13:05 Summary of Procedures: None done Imaging: ITS Impressions Head CT 10/04/17 13:51 CONCLUSION: 1. No acute intracranial abnormalities. Pending Results: None - Medications Number of antipsychotic medications at discharge: 1 - Discharge Care Plan Goals to Promote Your Health: * To prevent worsening of your condition and complications * To maintain your health at the optimal level Directions to Meet Your Goals: Take your medications as prescribed Follow your dietary instruction Follow activity as directed Keep your appointments as scheduled Take your immunizations and boosters as scheduled If your symptoms worsen call your PCP, if no PCP go to Urgent Care Center or Emergency Room For 21/10 questions related to your inpatient stay or results of tests pending at discharge, please contact Dr. Louis Crawley MD at Smoking is Dangerous to Your Health. Avoid second hand smoking
== END 2017-10-21 15:05 | disposition home or self-care (01) ==
LOC: NEPC 12:24 → NEDA 10-05 15:06 → H260 10-05 16:37 → H270 10-06 15:10 → H260 10-11 12:10 → H270 10-16 16:52 → H260 10-17 10:43
PROVIDERS: ADMIT Psychiatry & Neurology Psychiatry; ATTEND Psychiatry & Neurology Psychiatry